=== PATIENT | female | born 1955 | race Caucasian/White ===

== ENCOUNTER 2017-09-10 15:12 | Outpatient (CLI) | payer OTHER ==
[~2017-09-10 15:12] MED LIST: BENICAR PO; LAMICTAL PO; LEVO25TA11 PO; LISI-600 PO; METROPOLOL PO; OMEP20CA10 PO; QUET200T PO
== END 2017-09-10 20:02 | disposition home or self-care (01) ==
LOC: SMA 15:12
DX: Z12.31 Encounter for screening mammogram for malignant neoplasm of breast (principal)
CPT/HCPCS: G0202

== ENCOUNTER 2017-10-15 05:01 | Emergency (ER) | payer OTHER ==
[~2017-10-15] VITALS: Ht 160 cm; Wt 79.4 kg
[2017-10-15 05:20] VITALS: BP_SYST 128
--- NOTE | 2017-10-15 05:20 | NUR ---
Patient to ER bed 7 to gown for evaluation. Side rails up.
--- NOTE | 2017-10-15 05:30 | NUR ---
Pt in bed 7 with c/o anxiety , Dr bunch aware.
--- NOTE | 2017-10-15 05:35 | NUR ---
ER at bedside examining patient.
[2017-10-15] MEDS ORDERED: LORazepam 2 MG/ML VIAL (FOR ER USE) IM ONE (05:45)
[2017-10-15] MEDS ORDERED: ASPIRIN 81 MG TAB.CHEW PO ONE (05:45)
--- NOTE | 2017-10-15 06:14 | NUR ---
EKG performed at BS . Physician given copy of EKG for review.
[2017-10-15 06:40] LABS: BASOPHILS % (AUTO) 0.7 % (0.0-2.0); EOSINOPHILS # (AUTO) 0.1 K/uL (0.0-0.4); EOSINOPHILS % (AUTO) 2.2 % (0.0-4.0); HEMATOCRIT 36.3 % (36-48); LYMPHOCYTES # (AUTO) 1.5 K/uL (1.0-5.5); LYMPHOCYTES % (AUTO) 29.2 % (20.5-51.5); MEAN CORPUSCULAR HEMOGLOBIN 30 pg (27-31); MEAN CORPUSCULAR HGB CONC 33 % (32-36); MEAN CORPUSCULAR VOLUME 91 fL (79.0-98.0); MONOCYTES # (AUTO) 0.5 K/uL (0.0-1.0); NEUTROPHILS % (AUTO) 58.9 % (40.0-70.0); PLATELET COUNT (AUTO) 266 K/uL (130-430); RED BLOOD CELL COUNT(AUTO) 4.02 MIL/uL (4.2-6.2); RED CELL DISTRIBUTION WIDTH 12.7 % (9.0-15.0); WHITE BLOOD COUNT (AUTO) 5.1 K/uL (4.8-10.8)
[2017-10-15 06:57] LABS: ANION GAP 6 (5-15); CHLORIDE 105 mmol/L (98-107); CREATININE 1.25 mg/dL (0.55-1.30); GLUCOSE 111 mg/dL (70-99); POTASSIUM 3.8 mmol/L (3.5-5.1); SODIUM SERUM 138 mmol/L (136-145); UREA NITROGEN, BLOOD 18 mg/dL (8-21)
[2017-10-15 07:00] LABS: INR 0.9 (0.8-1.2); PROTHROMBIN TIME 9.2 SECS (9.5-12.5)
[2017-10-15 07:06] LABS: ALANINE AMINOTRANSFERASE 31 U/L (12-78); ALBUMIN 3.8 g/dL (3.4-4.8); ASPARTATE AMINOTRANSFERASE 26 U/L (10-37); TOTAL BILIRUBIN 0.4 mg/dL (0.0-1.0)
[2017-10-15 07:16] LABS: GFR AFRICAN AMERICAN 56 mL/min (>90)
[2017-10-15 07:24] VITALS: BP_SYST 132
--- NOTE | 2017-10-15 07:24 | NUR ---
Patient given written and verbal discharge instructions and verbalizes understanding. ER MD discussed with patient the results and treatment provided. Patient in stable condition. ID arm band removed. Rx of ativan given. Patient educated on pain management and to follow up with PMD. Pain Scale 0. Opportunity for questions provided and answered.
== END 2017-10-15 07:24 | disposition home or self-care (01) ==
LOC: SED 05:01
DX: G47.00 Insomnia, unspecified (principal); K21.9 Gastro-esophageal reflux disease without esophagitis; I10 Essential (primary) hypertension; E78.00 Pure hypercholesterolemia, unspecified; Z79.899 Other long term (current) drug therapy
CPT/HCPCS: 36415; 80053; 84484; 85025; 85610; 85730; 93005; 96372; 99285; J2060

== ENCOUNTER 2019-02-19 10:30 | Outpatient (CLI) | payer OTHER | END 2019-02-19 21:15 | disposition home or self-care (01) | LOC: SMA 10:30 | DX: Z12.31 Encounter for screening mammogram for malignant neoplasm of breast (principal) | CPT/HCPCS: 77067 ==

== ENCOUNTER 2019-06-21 05:07 | Emergency (ER) | payer OTHER ==
[~2019-06-21] VITALS: Ht 160 cm; Wt 79.4 kg
--- NOTE | 2019-06-21 05:25 | NUR ---
Patient to ER bed 6 to gown for evaluation. Side rails up.
[2019-06-21 05:26] VITALS: BP_SYST 138
--- NOTE | 2019-06-21 05:30 | NUR ---
Pt came to the ED with hx of bipolar disorder and HTN. Reports that she feels like she cannot breathe and she has not been able to sleep the last few days. Reports that PCP changed the dosage of her seroquel. Denies n/v/d or fever. No other complaints/injuries noted. Will cont. to monitor.
--- NOTE | 2019-06-21 05:36 | NUR ---
ER at bedside examining patient.
[2019-06-21] MEDS ORDERED: NITROGLYCERIN 250 ML IV ONE (05:45)
[2019-06-21 06:14] VITALS: BP_SYST 138
[2019-06-21 06:20] LABS: BASOPHILS % (AUTO) 0.6 % (0.0-2.0); EOSINOPHILS # (AUTO) 0.2 K/uL (0.0-0.4); EOSINOPHILS % (AUTO) 2.9 % (0.0-4.0); HEMATOCRIT 37.2 % (36-48); HEMOGLOBIN 12.7 g/dL (12.0-16.0); LYMPHOCYTES # (AUTO) 2.4 K/uL (1.0-5.5); LYMPHOCYTES % (AUTO) 38.3 % (20.5-51.5); MEAN CORPUSCULAR HEMOGLOBIN 32 pg (27-31); MEAN CORPUSCULAR HGB CONC 34 % (32-36); MEAN CORPUSCULAR VOLUME 93 fL (79.0-98.0); MONOCYTES # (AUTO) 0.5 K/uL (0.0-1.0); MONOCYTES % (AUTO) 7.5 % (1.7-9.3); NEUTROPHILS # (AUTO) 3.2 K/uL (1.8-7.7); NEUTROPHILS % (AUTO) 50.7 % (40.0-70.0); PLATELET COUNT (AUTO) 246 K/uL (130-430); RED BLOOD CELL COUNT(AUTO) 4.01 MIL/uL (4.2-6.2); RED CELL DISTRIBUTION WIDTH 13.5 % (9.0-15.0); WHITE BLOOD COUNT (AUTO) 6.3 K/uL (4.8-10.8)
[2019-06-21 06:32] LABS: CREATININE 1.48 mg/dL (0.55-1.30); POTASSIUM 3.6 mmol/L (3.5-5.1)
[2019-06-21 06:37] LABS: ALBUMIN 3.8 g/dL (3.4-4.8); TOTAL BILIRUBIN 0.4 mg/dL (0.0-1.0)
--- NOTE | 2019-06-21 07:02 | NUR ---
Patient does not wish to proceed with medical care recommended by Dr. Saenz. Patient given information related to possible complications, up to and including , which could occur as a result of leaving hospital at this time. Patient verbalizes understanding of risks involved leaving against medical advice. Patient has signed AMA form.
== END 2019-06-21 07:02 | disposition home or self-care (01) ==
LOC: SED 05:07
DX: F41.9 Anxiety disorder, unspecified (principal); K21.9 Gastro-esophageal reflux disease without esophagitis; I10 Essential (primary) hypertension; E78.00 Pure hypercholesterolemia, unspecified; Z79.899 Other long term (current) drug therapy
CPT/HCPCS: 36415; 71045; 80053; 84484; 85025; 93005; 99284

== ENCOUNTER 2021-08-12 15:20 | Outpatient (CLI) | payer OTHER ==
[~2021-08-12 15:20] MED LIST changes: -LISI-600 PO; +LISI20TA30 PO; -OMEP20CA10 PO; +OMEP20CA15 PO
== END 2021-08-13 16:53 | disposition home or self-care (01) ==
LOC: SMA 15:20
PROVIDERS: ATTEND Family Medicine
DX: Z12.31 Encounter for screening mammogram for malignant neoplasm of breast (principal)
CPT/HCPCS: 77067

== ENCOUNTER 2022-10-27 12:49 | Outpatient (CLI) | payer OTHER | END 2022-10-27 20:32 | disposition home or self-care (01) | LOC: SMA 12:49 | DX: Z12.31 Encounter for screening mammogram for malignant neoplasm of breast (principal) | CPT/HCPCS: 77067 ==